=== PATIENT | male | born 1975 | race Two or more races ===

== ENCOUNTER 2019-09-23 18:18 | Outpatient (CLI) | payer OTHER | END 2019-09-23 20:00 | disposition home or self-care (01) | LOC: RAD 18:18 | PROVIDERS: ATTEND General Practice | DX: M06.4 Inflammatory polyarthropathy (principal) ==

== ENCOUNTER 2019-09-26 07:50 | Outpatient (CLI) | payer OTHER | END 2019-09-26 07:54 | disposition home or self-care (01) | LOC: LAB 07:50 | PROVIDERS: ATTEND General Practice | DX: E78.2 Mixed hyperlipidemia (principal); E11.21 Type 2 diabetes mellitus with diabetic nephropathy; N40.0 Benign prostatic hyperplasia without lower urinary tract symptoms; Z12.11 Encounter for screening for malignant neoplasm of colon; E11.42 Type 2 diabetes mellitus with diabetic polyneuropathy; E06.3 Autoimmune thyroiditis; D58.8 Other specified hereditary hemolytic anemias; I11.9 Hypertensive heart disease without heart failure; N30.00 Acute cystitis without hematuria ==

== ENCOUNTER 2019-09-28 14:44 | Outpatient (CLI) | payer OTHER | END 2019-09-28 14:52 | disposition home or self-care (01) | LOC: LAB 14:44 | PROVIDERS: ATTEND General Practice | DX: E78.2 Mixed hyperlipidemia (principal); E11.21 Type 2 diabetes mellitus with diabetic nephropathy; N40.0 Benign prostatic hyperplasia without lower urinary tract symptoms; Z12.11 Encounter for screening for malignant neoplasm of colon; D58.8 Other specified hereditary hemolytic anemias; E11.42 Type 2 diabetes mellitus with diabetic polyneuropathy; E06.3 Autoimmune thyroiditis; I11.9 Hypertensive heart disease without heart failure; N30.00 Acute cystitis without hematuria ==